=== PATIENT | female | born 1975 | race Caucasian/White ===

== ENCOUNTER 2016-12-28 12:22 | Emergency (ER) | payer OTHER ==
[2016-12-28 13:57] LABS: ALBUMIN 3.8 g/dL (3.5-5.0); BILIRUBIN - TOTAL 0.2 mg/dL (0.1-1.0); CREATININE 1.2 mg/dL (0.5-1.0); GLOBULIN (CALCULATION) 3.1 g/dL (2.2-4.2); TOTAL PROTEIN 6.9 g/dL (6.4-8.3)
[2016-12-28 13:59] LABS: BASOPHIL 0 % (0-2); EOSINOPHIL 0 % (0-5); HCT 38.7 % (37.0-47.0); HGB 12.9 g/dl (12.5-16.0); LYMPHOCYTE 4.4 % (15-48); MCH 33.1 pg (25.0-31.0); MCHC 33.3 g/dL (32.0-36.0); MCV 99.2 fL (78.0-100.0); MONOCYTE 1.8 % (0-12); NEUTROPHIL 93.8 % (41-80); PLT 432 K/uL (150-400)
[2016-12-28 14:01] LABS: WBC 9.7 K/uL (4.0-10.5)
[2016-12-28 15:05] LABS: POTASSIUM 2.2 mmol/L (3.5-5.1)
[2016-12-28 19:27] LABS: MAGNESIUM 1.98 mg/dL (1.40-2.10)
== END 2016-12-28 20:38 | disposition home or self-care (01) ==
LOC: FER 12:22
PROVIDERS: Internal Medicine
DX: R07.9 Chest pain, unspecified (principal); E87.6 Hypokalemia; G89.29 Other chronic pain; M54.9 Dorsalgia, unspecified; E78.5 Hyperlipidemia, unspecified; F32.9 Major depressive disorder, single episode, unspecified; Z88.0 Allergy status to penicillin; Z91.09 Other allergy status, other than to drugs and biological substances; Z79.899 Other long term (current) drug therapy; Z79.82 Long term (current) use of aspirin; Z79.891 Long term (current) use of opiate analgesic
CPT/HCPCS: 36415; 71020; 80053; 83735; 84132; 84484; 85025; 85379; 93005; 94640; 94664; C9113; J1885; J2270; J2405; J2930